=== PATIENT | female | born 1975 | race Caucasian/White ===

== ENCOUNTER 2023-06-19 16:53 | Outpatient (CLI) | payer BC, SELFPAY | END 2023-06-19 16:54 | disposition home or self-care (01) | LOC: NFLDREF 22:13 | PROVIDERS: Visit Provider Family Medicine | DX: R30.9 Painful micturition, unspecified (principal); N39.0 Urinary tract infection, site not specified | CPT/HCPCS: 87086; 87186 ==

== ENCOUNTER 2023-12-18 16:53 | Outpatient (CLI) | payer BC, SELFPAY | END 2023-12-18 16:54 | disposition home or self-care (01) | LOC: NFLDREF 12-20 04:21 | PROVIDERS: Visit Provider Physician Assistant | DX: R07.9 Chest pain, unspecified (principal) | CPT/HCPCS: 84484 ==